=== PATIENT | male | born 1995 | race African-American/Black ===

== ENCOUNTER 2017-01-02 07:24 | Emergency (ER) | payer OTHER ==
[~2017-01-02] VITALS: Ht 180.3 cm; Wt 72.6 kg
[2017-01-02 07:28] VITALS: BP_SYST 120
--- NOTE | 2017-01-02 07:30 | NUR ---
Dr. Castro assessing pt. Pt cleaning wound with tap water. Suture set up at bedside.
--- NOTE | 2017-01-02 07:30 | NUR ---
Pt placed in ER bed 08 with father. Pt s/p lac to RHA from broken glass while doing dishes. Lac measures approx 3x1 cm, semicircular appearance to knuckles 4 and 5 of RHA. No active bleeding noted. Pt able to wiggle fingers, cap refill < 3 sec to nail beds.
--- NOTE | 2017-01-02 07:33 | NUR ---
Panfilo hoover in ED - 01/02/[address] at [address] Castro at [facility].
--- NOTE | 2017-01-02 07:36 | NUR ---
Patient is flushing wound in sink as per Dr. Castro's instruction.
[2017-01-02] MEDS ORDERED: LIDOCAINE 2%, 20 ML MDV ONE (07:49)
[2017-01-02] MEDS ORDERED: BACITRACIN 1 GM OINT TP ONE (08:23)
--- NOTE | 2017-01-02 08:40 | NUR ---
Patient given written and verbal discharge instructions and verbalizes understanding. ER MD DE LA GARZA discussed with patient the results and treatment provided. Patient in stable condition. ID arm band removed. Rx of TYLENOL AND KELFLEX given. Patient educated on pain management and to follow up with PMD. Pain Scale 0. Opportunity for questions provided and answered.
== END 2017-01-02 08:40 | disposition home or self-care (01) ==
LOC: SED 07:24
DX: S61.411A Laceration without foreign body of right hand, initial encounter (principal); Z88.1 Allergy status to other antibiotic agents; W25.XXXA Contact with sharp glass, initial encounter; Y93.89 Activity, other specified; Y92.89 Other specified places as the place of occurrence of the external cause; Y99.8 Other external cause status
CPT/HCPCS: 12002; 99283; J2001

== ENCOUNTER 2023-06-05 19:51 | Emergency (ER) | payer MEDICAID, OTHER ==
[~2023-06-05] VITALS: Ht 180.3 cm; Wt 61.7 kg
[2023-06-05 20:14] VITALS: BP_SYST 139; PULSE 91; RESP 20; TEMP 99; O2SAT 98
[2023-06-05] MEDS ORDERED: IBUP-1971 PO (20:47)
[2023-06-05] MEDS ORDERED: CLIN-142 PO (20:47)
[2023-06-05 21:06] VITALS: BP_SYST 139; PULSE 91; RESP 20; TEMP 99; O2SAT 98
== END 2023-06-05 22:52 | disposition home or self-care (01) ==
LOC: SED 19:51
DX: K02.9 Dental caries, unspecified (principal); K08.89 Other specified disorders of teeth and supporting structures; Z88.1 Allergy status to other antibiotic agents; Z79.899 Other long term (current) drug therapy
CPT/HCPCS: 99283